=== PATIENT | female | born 1945 | race Caucasian/White ===

== ENCOUNTER 2018-10-21 11:31 | Day surgery (SDC) | payer MEDICARE ==
[2018-10-16 13:37] LABS: BASOPHILS # (AUTO) 0.1 X10'3 (0-0.2); BASOPHILS % (AUTO) 0.7 % (0-1); EOSINOPHILS # (AUTO) 0.2 X10'3 (0-0.9); EOSINOPHILS % (AUTO) 2.4 % (0-6); HEMATOCRIT 32.1 % (35.0-45.0); HEMOGLOBIN 10.9 g/dl (12.0-16.0); LYMPHOCYTES # (AUTO) 1.8 X10'3 (1.1-4.8); LYMPHOCYTES % (AUTO) 23.5 % (21-51); MEAN CORPUSCULAR HEMOGLOBIN 30.3 PG (27.0-31.0); MEAN CORPUSCULAR VOLUME 89.1 FL (78-98); MEAN PLATELET VOLUME 7.4 FL (7.4-10.4); MONOCYTES # (AUTO) 0.8 X10'3 (0-0.9); MONOCYTES % (AUTO) 10.2 % (2-12); NEUTROPHILS # (AUTO) 4.8 X10'3 (1.8-7.7); NEUTROPHILS % (AUTO) 63.2 % (42-75); PLATELET COUNT 283 X10'3 (140-440); RED BLOOD COUNT 3.61 X10'6 (4.20-5.60); RED CELL DISTRIBUTION WIDTH 13.7 % (11.5-14.5); WHITE BLOOD COUNT 7.6 X10'3 (4.5-11.0)
[2018-10-16 13:42] LABS: CLARITY,URINE CLEAR (Clear); COLOR,URINE YELLOW (Yellow); GLUCOSE, URINE NEGATIVE (Neg); KETONES,URINE NEGATIVE (Neg); LEUKOCYTE ESTERASE ,URINE NEGATIVE (Neg); NITRITES, URINE NEGATIVE (Neg); OCCULT BLOOD,URINE TRACE-INTACT (Neg); PH,URINE 5.5 (4.8-8.0); PROTEIN,URINE NEGATIVE (Neg); UROBILINOGEN,URINE 0.2 E.U/dL (0.2-1.0)
[2018-10-16 13:45] LABS: UA COLLECTION TYPE CLN CATCH MIDSTREAM
[2018-10-16 13:51] LABS: SQUAMOUS EPITHELIAL CELL,UR FEW /LPF (FEW)
[2018-10-16 13:54] LABS: RBC,URINE 0-2 /HPF (0-2); WBC,URINE NONE SEEN /HPF (0-4)
[2018-10-16 13:55] LABS: BACTERIA,URINE FEW /HPF (Neg); MUCUS STRANDS FEW /LPF (Neg)
[2018-10-16 13:59] LABS: PARTIAL THROMBOPLASTIN TIME 28 SECONDS (22-32); PROTHROMBIN TIME 10.1 SECONDS (9.0-12.0)
[2018-10-16 14:37] LABS: ALANINE AMINOTRANSFERASE 23 U/L (12-78); ALBUMIN 4.2 G/DL (3.4-5.0); ALBUMIN/GLOBULIN RATIO 1.2 (1.1-1.5); ALKALINE PHOSPHATASE 129 IU/L (46-116); ANION GAP 9 (8-16); ASPARTATE AMINO TRANSFERASE 21 U/L (10-37); BILIRUBIN,TOTAL 0.7 MG/DL (0.1-1.0); BLOOD UREA NITROGEN 83 MG/DL (7-18); BUN/CREATININE RATIO 25.8 (6.6-38.0); CALCIUM 8.7 MG/DL (8.5-10.1); CHLORIDE 102 MMOL/L (99-107); CREATININE 3.22 MG/DL (0.40-0.90); GLUCOSE 151 MG/DL (70-104); POTASSIUM 3.8 MMOL/L (3.5-5.1); SODIUM 139 MMOL/L (135-145); TOTAL CARBON DIOXIDE 28.3 MMOL/L (24-32); TOTAL PROTEIN 7.6 G/DL (6.4-8.2); eGFR 14 ML/MIN
[~2018-10-21] VITALS: Ht 167.6 cm; Wt 86.0 kg
[2018-10-21] VITALS (16 sets, daily range): BP systolic 129–165; BP diastolic 55–94
[2018-10-21] MEDS ORDERED: fentaNYL/PF 50MCG/1 ML 2ML syringe IV ONE (12:25)
[2018-10-21] MEDS ORDERED: MIDAZolam 5mg/ml 2ml vial IV ONE (12:25)
[2018-10-21] MEDS ORDERED: LIDOcaine 1% 30ml preserv. free vial SQ ONE (12:40)
[2018-10-21] MEDS ORDERED: PANT40SU2 PO (13:23)
[2018-10-21] MEDS ORDERED: METO25TA6 PO (13:23)
[2018-10-21] MEDS ORDERED: LANTUS SQ (13:23)
[2018-10-21] MEDS ORDERED: EPOE1000 SUBCUT (13:23)
[2018-10-21] MEDS ORDERED: FURO-149 PO (13:23)
[2018-10-21] MEDS ORDERED: acetaminophen w/codeine (30MG) #3 tablet PO PRN (14:45)
[2018-10-21 15:00] LABS: HEMATOCRIT 32.2 % (35.0-45.0); HEMOGLOBIN 10.8 g/dl (12.0-16.0); MEAN CORPUSCULAR HEMOGLOBIN 30.1 PG (27.0-31.0); MEAN CORPUSCULAR HGB CONC 33.4 g/dL (33.0-36.5); MEAN PLATELET VOLUME 7.3 FL (7.4-10.4); PLATELET COUNT 255 X10'3 (140-440); RED BLOOD COUNT 3.58 X10'6 (4.20-5.60); RED CELL DISTRIBUTION WIDTH 13.7 % (11.5-14.5); WHITE BLOOD COUNT 8.3 X10'3 (4.5-11.0)
[2018-10-21 17:38] LABS: HEMATOCRIT 32.5 % (35.0-45.0); HEMOGLOBIN 11.1 g/dl (12.0-16.0); MEAN CORPUSCULAR HEMOGLOBIN 30.1 PG (27.0-31.0); MEAN CORPUSCULAR VOLUME 88.6 FL (78-98); MEAN PLATELET VOLUME 7.5 FL (7.4-10.4); PLATELET COUNT 252 X10'3 (140-440); RED BLOOD COUNT 3.67 X10'6 (4.20-5.60); RED CELL DISTRIBUTION WIDTH 13.8 % (11.5-14.5); WHITE BLOOD COUNT 8.2 X10'3 (4.5-11.0)
== END 2018-10-21 18:00 | disposition home or self-care (01) ==
LOC: SSTAY O 11:31
PROVIDERS: ATTEND Internal Medicine Critical Care Medicine
DX: R80.9 Proteinuria, unspecified (principal)
CPT/HCPCS: 36415; 50200; 76942; 80053; 81001; 82948; 85025; 85027; 85576; 85610; 85730; 86885; 86900; 86901; 86920; 87088; J2250; J3490

== ENCOUNTER 2019-12-08 06:05 | Day surgery (SDC) | payer MEDICARE ==
[2019-12-01 14:27] LABS: BASOPHILS % (AUTO) 0.6 % (0-1); EOSINOPHILS # (AUTO) 0.2 X10'3 (0-0.9); EOSINOPHILS % (AUTO) 2.5 % (0-6); LYMPHOCYTES # (AUTO) 1.3 X10'3 (1.1-4.8); LYMPHOCYTES % (AUTO) 17.1 % (21-51); MEAN CORPUSCULAR HEMOGLOBIN 28.7 PG (27.0-31.0); MEAN CORPUSCULAR HGB CONC 32.6 g/dL (33.0-36.5); MEAN CORPUSCULAR VOLUME 87.8 FL (78-98); MEAN PLATELET VOLUME 7.9 FL (7.4-10.4); MONOCYTES # (AUTO) 0.7 X10'3 (0-0.9); NEUTROPHILS # (AUTO) 5.2 X10'3 (1.8-7.7); NEUTROPHILS % (AUTO) 69.8 % (42-75); PRE OP HEMATOCRIT 34.2 % (35.0-45.0); PRE OP HEMOGLOBIN 11.2 g/dL (12.0-16.0); PRE OP PLATELET COUNT 252 X10'3 (140-440); RED BLOOD COUNT 3.89 X10'6 (4.20-5.60); RED CELL DISTRIBUTION WIDTH 16.1 % (11.5-14.5)
[2019-12-01 14:37] LABS: CLARITY,URINE SLIGHTLY CLOUDY (Clear); COLOR,URINE STRAW (Yellow); GLUCOSE, URINE NEGATIVE (Neg); KETONES,URINE NEGATIVE (Neg); LEUKOCYTE ESTERASE ,URINE TRACE (Neg); NITRITES, URINE NEGATIVE (Neg); OCCULT BLOOD,URINE TRACE-INTACT (Neg); PROTEIN,URINE NEGATIVE (Neg); UA COLLECTION TYPE CLN CATCH MIDSTREAM; UROBILINOGEN,URINE 0.2 E.U/dL (0.2-1.0)
[2019-12-01 14:43] LABS: ALBUMIN 3.9 G/DL (3.4-5.0); ALBUMIN/GLOBULIN RATIO 1.1 (1.1-1.5); ALKALINE PHOSPHATASE 136 IU/L (46-116); BLOOD UREA NITROGEN 91 MG/DL (7-18); BUN/CREATININE RATIO 20.9 (6.6-38.0); CALCIUM 7.6 MG/DL (8.5-10.1); CHLORIDE 102 MMOL/L (99-107); CREATININE 4.36 MG/DL (0.40-0.90); PRE OP ALT 16 U/L (30-65); PRE OP ANION GAP 13 (8-16); PRE OP AST 28 U/L (10-37); PRE OP BILIRUB, TOTAL 0.7 MG/DL (0.0-1.0); PRE OP POTASSIUM 4.3 MMOL/L (3.4-5.1); PRE OP SODIUM 139 MMOL/L (135-145); TOTAL PROTEIN 7.6 G/DL (6.4-8.2); eGFR 10 ML/MIN
[2019-12-01 14:45] LABS: RBC,URINE 0-2 /HPF (0-2); SQUAMOUS EPITHELIAL CELL,UR FEW /LPF (FEW); WBC,URINE 0-4 /HPF (0-4)
[2019-12-01 14:46] LABS: BACTERIA,URINE 1+ /HPF (Neg)
[2019-12-01 14:46] LABS: PRE OP GLUCOSE 208 MG/DL (70-104)
[~2019-12-08] VITALS: Ht 167.6 cm; Wt 97.1 kg
[2019-12-08] VITALS (11 sets, daily range): BP systolic 113–155; BP diastolic 59–73
[~2019-12-08 06:05] MED LIST: FURO-149 PO; LANTUS SQ; PANT40SU2 PO; [UNRECOGNIZED DRUG - OTHER] EACHEYE; ceFAZolin 2gm in dextrose, iso 50 ML IV ONE; famotidine 20mg tablet PO ONE; normal saline 1000ml 1,000 ML IV SCH
[2019-12-08] MEDS ORDERED: LIDOcaine 1% (10mg/ml) 2ml vial ONE (06:20)
[2019-12-08] MEDS ORDERED: BUPIVAcaine/PF 2.5 mg/ml (0.25%) 30ml vial ONE (07:38)
[2019-12-08] MEDS ORDERED: mupirocin 2% ointment 22GM ONE (07:38)
[2019-12-08] MEDS ORDERED: heparin sodium, porcine/PF 100unit/ml 5ML syringe ONE (07:38)
[2019-12-08] MEDS ORDERED: ceFAZolin 1000mg inj ONE (07:38)
[2019-12-08] MEDS ORDERED: normal saline 1000ml 1,000 ML IV ONE (08:01)
[2019-12-08] MEDS ORDERED: sevoflurane 250ml liquid IH ONE (08:02)
[2019-12-08] MEDS ORDERED: neostigmine methylsulfate 1 MG/ML 10ml vial ONE (08:02)
[2019-12-08] MEDS ORDERED: glycopyrrolate 0.2mg/ml inj ONE (08:02)
[2019-12-08] MEDS ORDERED: ondansetron/PF 4mg/2ml inj IV PRN (08:05)
[2019-12-08] MEDS ORDERED: fentaNYL/PF 50MCG/1 ML 2ML syringe IV PRN ×2 (08:05)
[2019-12-08] MEDS ORDERED: HYDROmorphone inj. 0.5 MG/0.5 ML DISP.SYRIN IV PRN ×2 (08:05)
[2019-12-08] MEDS ORDERED: proCHLORperazine 10 MG/2 ml inj IV PRN (08:05)
[2019-12-08] MEDS ORDERED: acetaminophen 1,000mg/100ml IV 100 ML IV PRN (08:05)
[2019-12-08] MEDS ORDERED: fentaNYL/PF 50MCG/1 ML 2ML syringe ONE (08:07)
[2019-12-08] MEDS ORDERED: midazolam 2 mg/2 ml injection ONE (08:08)
[2019-12-08] MEDS ORDERED: LIDOcaine 2% (20mg/ml) 5ml vial ONE (08:20)
[2019-12-08] MEDS ORDERED: rocuronium 10mg/ml inj IV ONE (08:20)
[2019-12-08] MEDS ORDERED: propofol inj 20 ML IV ONE (08:20)
[2019-12-08] MEDS ORDERED: ondansetron/PF 4mg/2ml inj ONE (08:33)
[2019-12-08] MEDS ORDERED: dexamethasone sod phosphate 4mg/ml inj. ONE (08:34)
--- NOTE | 2019-12-08 09:12 | NUR ---
RECEIVED FROM OR VIA [facility] ACCOMPANIED BY ANESTHESIOLOGIST DR SERRA. REPORT GIVEN. PT AWAKE AND ALERT AND DENIES PAIN AT THIS TIME.20 GAUGE PIV RWRIST PATENT AND RUNNING NS AT 10 ML/HR. SKIN PINK AND WARM, VSS, VALENCIA, ABD SOFT, LG BANDAID X 2 CDI, 4X4 AND TEGADERM DRESSING COVERING PEDICATH R ABD CDI. Addendum: 12/08/19 at 0926 by Funmi Castro RN AMEND>>> PIV LOCATED L WRIST
--- NOTE | 2019-12-08 10:52 | NUR ---
PT AWAKE AND ALERT AND PAIN AT LEVEL 3-4AT THIS TIME.20 GAUGE PIV RWRIST DC/D CATH TIP INTACT. SKIN PINK AND WARM, VSS, VALENCIA, ABD SOFT, LG BANDAID X 2 CDI, 4X4 AND TEGADERM DRESSING COVERING PEDICATH R ABD CDI. DISCHARGE INSTRUCTIONS GIVEN, VERBALIZED UNDERSTANDING. TRANSPORTED VIA WHEELCHAIR TO SPOUSE IN PRIVATE VEHICLE TO HOME
== END 2019-12-08 10:52 | disposition home or self-care (01) ==
LOC: PAS 06:05
PROVIDERS: ATTEND Surgery
DX: E11.22 Type 2 diabetes mellitus with diabetic chronic kidney disease (principal); N18.6 End stage renal disease; E11.319 Type 2 diabetes mellitus with unspecified diabetic retinopathy without macular edema; J42 Unspecified chronic bronchitis; J45.909 Unspecified asthma, uncomplicated; I10 Essential (primary) hypertension; N04.9 Nephrotic syndrome with unspecified morphologic changes; Z98.890 Other specified postprocedural states; Z98.49 Cataract extraction status, unspecified eye; Z88.8 Allergy status to other drugs, medicaments and biological substances; Z88.5 Allergy status to narcotic agent; Z79.4 Long term (current) use of insulin; Z79.899 Other long term (current) drug therapy
CPT/HCPCS: 36415; 49324; 49326; 71046; 80053; 81001; 82948; 85025; 85610; 85730; 87088; 87635; 93005; C1750; J0690; J1100; J1642; J2001; J2250; J2405; J2704; J2710; J3010; J3490; J7030; A4215; A4618; A6258; A6449

== ENCOUNTER 2020-06-16 10:41 | Emergency (ER) | payer MEDICARE ==
[~2020-06-16] VITALS: Ht 165.1 cm; Wt 97.0 kg
[~2020-06-16 10:41] MED LIST changes: -ceFAZolin 2gm in dextrose, iso 50 ML IV ONE; -famotidine 20mg tablet PO ONE; -normal saline 1000ml 1,000 ML IV SCH
[2020-06-16] MEDS ORDERED: ondansetron/PF 4mg/2ml inj IV ONE ×2 (11:35→14:05)
[2020-06-16] MEDS ORDERED: normal saline 1000ML IV soln IVB ONE (11:35)
[2020-06-16 12:49] LABS: BASOPHILS % (AUTO) 0.4 % (0-1); EOSINOPHILS % (AUTO) 0.1 % (0-6); HEMATOCRIT 33.1 % (35.0-45.0); HEMOGLOBIN 11.4 g/dl (12.0-16.0); LYMPHOCYTES # (AUTO) 0.7 X10'3 (1.1-4.8); LYMPHOCYTES % (AUTO) 15.1 % (21-51); MEAN CORPUSCULAR HGB CONC 34.3 g/dL (33.0-36.5); MEAN CORPUSCULAR VOLUME 87.4 FL (78-98); MEAN PLATELET VOLUME 7.2 FL (7.4-10.4); MONOCYTES # (AUTO) 0.7 X10'3 (0-0.9); MONOCYTES % (AUTO) 16.1 % (2-12); NEUTROPHILS # (AUTO) 3.2 X10'3 (1.8-7.7); NEUTROPHILS % (AUTO) 68.3 % (42-75); PLATELET COUNT 190 X10'3 (140-440); RED BLOOD COUNT 3.79 X10'6 (4.20-5.60); RED CELL DISTRIBUTION WIDTH 14.2 % (11.5-14.5); WHITE BLOOD COUNT 4.7 X10'3 (4.5-11.0)
--- NOTE | 2020-06-16 13:06 | NUR ---
PT DRANK 200 NL OF WATER WITH NO N/V
[2020-06-16 13:14] LABS: ALANINE AMINOTRANSFERASE 34 U/L (12-78); ALBUMIN 3.1 G/DL (3.4-5.0); ALBUMIN/GLOBULIN RATIO 0.8 (1.1-1.5); ALKALINE PHOSPHATASE 82 IU/L (46-116); ANION GAP 13 (8-16); ASPARTATE AMINO TRANSFERASE 65 U/L (10-37); BILIRUBIN,TOTAL 0.7 MG/DL (0.1-1.0); BLOOD UREA NITROGEN 62 MG/DL (7-18); BUN/CREATININE RATIO 9.3 (6.6-38.0); CALCIUM 6.8 MG/DL (8.5-10.1); CHLORIDE 96 MMOL/L (99-107); CREATININE 6.65 MG/DL (0.40-0.90); GLUCOSE 72 MG/DL (70-104); SODIUM 136 MMOL/L (135-145); TOTAL CARBON DIOXIDE 27.2 MMOL/L (24-32); TOTAL PROTEIN 6.9 G/DL (6.4-8.2); eGFR 6 ML/MIN
[2020-06-16 13:16] LABS: POTASSIUM 2.8 MMOL/L (3.5-5.1)
--- NOTE | 2020-06-16 13:25 | NUR ---
[facility]
[2020-06-16] MEDS ORDERED: potassium Cl 20 mEq SR tablet PO STA (13:31)
[2020-06-16] MEDS ORDERED: potassium Cl 10 mEq/100mL bag IV ONE (13:35)
[2020-06-16] MEDS ORDERED: BAMLANIVIMAB IV ONE (14:05)
[2020-06-16] MEDS ORDERED: NORMAL SALINE IV ONE (14:05)
--- NOTE | 2020-06-16 14:09 | NUR ---
SPOKE WITH SON DWAYNE [phone]
--- NOTE | 2020-06-16 15:52 | NUR ---
PT ATE 1/2 TURKEY SANDWICH AND SUGAR FREE JELLO.
[2020-06-16] MEDS ORDERED: acetaminophen 325mg tablet PO ONE (16:00)
[2020-06-16 18:16] VITALS: BP 128/66
== END 2020-06-16 18:18 | disposition home or self-care (01) ==
LOC: ER 10:41
DX: U07.1 COVID-19 (principal); E87.6 Hypokalemia; R53.1 Weakness; Z88.5 Allergy status to narcotic agent; Z88.8 Allergy status to other drugs, medicaments and biological substances; Z79.899 Other long term (current) drug therapy; Z79.84 Long term (current) use of oral hypoglycemic drugs
CPT/HCPCS: 71045; 80053; 83880; 85025; 93005; 96365; 96366; 96368; 96375; 96376; 99285; J2405; J3480; J7030; J7050; 96361